=== PATIENT | male | born 1970 | race Caucasian/White ===

== ENCOUNTER 2021-12-25 10:28 | Day surgery (SDC) | payer OTHER ==
[2021-12-22 15:28] VITALS: BMI 33.0
[2021-12-25 12:03] VITALS: TEMP 97.3
[2021-12-26 08:56] VITALS: BP 110/71; PULSE 64; RESP 18
== END 2021-12-25 12:30 | disposition home or self-care (01) ==
LOC: FASU-ENDO 10:28
PROVIDERS: ATTEND Internal Medicine Gastroenterology
PROC: 0DBN8ZX Excision of Sigmoid Colon, Via Natural or Artificial Opening Endoscopic, Diagnostic (ICD-10-PCS; principal; 2021-12-25 11:33)
DX: Z12.11 Encounter for screening for malignant neoplasm of colon (principal); Z83.71 Family history of colonic polyps; K57.30 Diverticulosis of large intestine without perforation or abscess without bleeding; K63.5 Polyp of colon
CPT/HCPCS: 88305-TC